=== PATIENT | female | born 2005 | race African-American/Black ===

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

== ENCOUNTER → 2024-02-05 | Outpatient (CLI) | payer OTHER ==
[2024-02-05 20:48] LABS: ALT 23 U/L (8-44); AST 49 U/L (13-35); Albumin 4.9 g/dL (3.8-4.9); Albumin/Globulin Ratio 1.48 Ratio (1.60-3.17); Alkaline Phosphatase 60 U/L (41-126); BUN/Creat Ratio 9.38 Ratio (12.00-20.00); Blood Urea Nitrogen 7.5 mg/dL (9.0-27.0); Calcium 9.6 mg/dL (8.7-10.3); Carbon Dioxide 24.5 mmol/L (21.6-31.8); Chloride 101 mmol/L (96-109); Globulin 3.3 g/dL (1.6-3.3); Glucose 85 mg/dL (70-110); Sodium 138 mmol/L (135-145); Total Bilirubin 0.6 mg/dL (0.3-1.2); Total Protein 8.2 g/dL (6.2-8.2)
[2024-02-05 21:46] LABS: EBV-EA (IgG) 1.2 AI; EBV-EBNA(IgG) <0.2; EBV-VCA (IgG) 0.2 AI; EBV-VCA (IgM) >4.0 AI
[2024-02-06 02:09] LABS: HCT 41.1 % (37.2-46.3); HGB 13.5 g/dL (12.0-15.0); MCH 30.1 pg (27.0-32.0); MCHC 32.8 g/dL (32.0-37.0); MCV 91.7 FL (80.0-97.0); Mean Platelet Volume 13.3 FL (9.5-12.2); NRBC Per 100 WBC 0 X 10*3/uL (0.00-0.01); Platelet Count 128 X 10*3/uL (140-440); RBC 4.48 X 10*6/uL (4.10-5.20); WBC 9.53 X 10*3/uL (4.50-10.00)
[2024-02-06 02:11] LABS: Eosinophils # (M) 0 X 10*3/uL (0.04-0.35); Lymphocytes # (M) 7.43 X 10*3/uL (0.90-5.00); Monocytes # (M) 0.38 X 10*3/uL (0.20-1.00); Neutrophils # (M) 1.62 X 10*3/uL (1.80-7.70); Neutrophils % (M) 17 %
== END | disposition home or self-care (01) ==
LOC: LABWHC1 15:40
PROVIDERS: ATTEND Family Medicine
DX: R53.83 Other fatigue (principal); R53.81 Other malaise
CPT/HCPCS: 36415; 80053; 85025; 86308; 86663; 86664; 86665; 87070; 87086